=== PATIENT | male | born 1950 | race American Indian/Alaskan Native ===

== ENCOUNTER 2019-02-06 10:43 | Outpatient (CLI) | payer OTHER, MEDICARE ==
--- NOTE | 2019-02-06 12:36 | XRay Report ---
Right hip 3 views INDICATION / CLINICAL INFORMATION: LUMBAR STRAIN. COMPARISON: None available. FINDINGS: BONES/JOINT(S): No acute fracture or subluxation. Mild to moderate bilateral facet DJD with superior joint space loss and marginal osteophyte formation. No aggressive appearing bone lesions. SOFT TISSUES: No significant abnormality. ADDITIONAL FINDINGS: None. Signer Name: Brian Wagner MD Signed: 02/06/2019 12:32 PM Workstation Name: [id number]
--- NOTE | 2019-02-06 12:38 | XRay Report ---
LUMBAR SPINE HISTORY: Lumbar strain. COMPARISON: None. TECHNIQUE: 3 view(s) of the lumbar spine obtained. FINDINGS: Vertebrae: Chronic anterior wedge compression fractures of T12, L1 and L2. Grade 1 L1-2 retrolisthesi s. Large anterior osteophytes from T11-T12 through L1-2. No acute fracture.. Disc Spaces:No significant abnormality. Facet Joints:Moderate multilevel facet joint sclerosis. Additional findings: Pedicles are intact. 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 Multilevel facet joint arthropathy. Signer Name: Raji Calderon MD Signed: 02/06/2019 12:34 PM Workstation Name: [id number]
== END 2019-02-06 10:44 | disposition home or self-care (01) ==
LOC: SPVIMAG 10:43
PROVIDERS: ATTEND Internal Medicine
DX: S22.080A Wedge compression fracture of T11-T12 vertebra, initial encounter for closed fracture (principal); S32.010A Wedge compression fracture of first lumbar vertebra, initial encounter for closed fracture; S32.020A Wedge compression fracture of second lumbar vertebra, initial encounter for closed fracture; X58.XXXA Exposure to other specified factors, initial encounter; Y93.89 Activity, other specified; Y92.89 Other specified places as the place of occurrence of the external cause; Y99.8 Other external cause status
CPT/HCPCS: 72100